=== PATIENT | male | born 1975 | race Caucasian/White ===

== ENCOUNTER 2021-03-18 19:04 | Emergency (ER) | payer OTHER ==
[~2021-03-18] VITALS: Ht 190.5 cm; Wt 88.5 kg
[2021-03-18] MEDS ORDERED: BICT1TAB PO (20:25)
--- NOTE | 2021-03-18 20:48 | NUR ---
PT IS IN ROOM #2A. DR MAGALLON EVALUATED THE PT.
[2021-03-18 20:55] LABS: HEMATOCRIT 41.2 % (36.7-47.1); MEAN CORPUSCULAR HEMOGLOBIN 29.8 uug (23.8-33.4); MEAN CORPUSCULAR VOLUME 87.3 fL (73.0-96.2); PLATELET COUNT (AUTO) 362 K/uL (152-348)
[2021-03-18] MEDS ORDERED: ERYT250T65 PO (20:56)
[2021-03-18 21:00] LABS: POTASSIUM 3.5 mmol/L (3.5-5.1)
[2021-03-18 21:32] VITALS: BP 148/79
--- NOTE | 2021-03-18 21:32 | NUR ---
PT WAS D/C'd TO HOME. D/C INSTRUCTIONS GIVEN TO THE PT BY DR MAGALLON.
== END 2021-03-18 21:33 | disposition home or self-care (01) ==
LOC: ER 20:16
DX: L03.115 Cellulitis of right lower limb (principal); D72.810 Lymphocytopenia; Z79.899 Other long term (current) drug therapy
CPT/HCPCS: 36415; 85025; A4663